=== PATIENT | female | born 1970 | race Caucasian/White ===

== ENCOUNTER → 2020-07-12 | Outpatient (CLI) | payer BC, OTHER ==
[~2020-07-12] MED LIST: COLACE 100MG C100 MG PO; CYCLOBENZAPRINE10 MG PO; ERYTHROMYCIN O3.5 GM OD; IBUPROFEN800 MG PO; PERCOCET 5/325 T1 EA PO; PROZAC 20 MG CA20 MG PO; SYNTHROID88 MCG PO
[2020-07-12 10:10] LABS: HEMOGLOBIN 12.3 gm/dl (12.3-15.3); RED BLOOD COUNT 4.33 M/UL (4.00-5.10); WHITE BLOOD COUNT 4.3 K/UL (4.5-11.0)
== END ==
LOC: OPSV2 09:30
PROVIDERS: Obstetrics & Gynecology
DX: Z01.812 Encounter for preprocedural laboratory examination (principal)
CPT/HCPCS: 36415; 81001; 85025

== ENCOUNTER → 2020-07-19 | Day surgery (SDC) | payer BC, OTHER | END | disposition home or self-care (01) | LOC: OR 07:43 | PROVIDERS: Obstetrics & Gynecology | PROC: 0U5B8ZZ Destruction of Endometrium, Via Natural or Artificial Opening Endoscopic (ICD-10-PCS; principal; 2020-07-19 09:00) | PROC: 0UDB7ZZ Extraction of Endometrium, Via Natural or Artificial Opening (ICD-10-PCS; 2020-07-19 09:00) | DX: D25.9 Leiomyoma of uterus, unspecified (principal); N85.8 Other specified noninflammatory disorders of uterus; M19.90 Unspecified osteoarthritis, unspecified site; M54.9 Dorsalgia, unspecified; M79.606 Pain in leg, unspecified; E66.9 Obesity, unspecified; Z68.41 Body mass index [BMI] 40.0-44.9, adult; Z20.822 Contact with and (suspected) exposure to COVID-19; Z79.899 Other long term (current) drug therapy; Z87.891 Personal history of nicotine dependence | CPT/HCPCS: J0690; J1100; J1170; J2250; J2405; J2704; J3010; J7030; J7120 ==

== ENCOUNTER 2020-08-09 03:04 | Emergency (ER) | payer BC ==
[~2020-08-09 03:04] MED LIST changes: -ERYTHROMYCIN O3.5 GM OD
[2020-08-09] MEDS ORDERED: ERYTHROMYCIN O3.5 GM OD (04:31)
== END 2020-08-09 04:48 | disposition home or self-care (01) ==
LOC: ER1 03:04
DX: S05.01XA Injury of conjunctiva and corneal abrasion without foreign body, right eye, initial encounter (principal); X58.XXXA Exposure to other specified factors, initial encounter; Z23 Encounter for immunization
CPT/HCPCS: 65205; 90471; 90714; 99283